=== PATIENT | female | born 1955 | race Caucasian/White ===

== ENCOUNTER → 2019-01-18 | Outpatient (CLI) | payer OTHER ==
[~2019-01-18] MED LIST: FOLGARD TABLET1 EAC1; IBUPROFEN 600600 M1 PO; KOMBIGLYZE XR1 EAC2 PO; LEVAQUIN 500 M500 M2 PO; MULTIVITAMINS PO; PEPCID40 MG PO; PERCOCET 5-3251 EACH PO; SYNTHROID300 MCG PO; VITAMIN D35000 UNI1 PO; VITAMINC500 PO; ZYRTEC10 M2 PO; [UNRECOGNIZED DRUG - OTHER] PO
== END ==
LOC: MRI 09:06
DX: M51.24 Other intervertebral disc displacement, thoracic region (principal); M47.812 Spondylosis without myelopathy or radiculopathy, cervical region; M48.04 Spinal stenosis, thoracic region; M48.02 Spinal stenosis, cervical region; M25.78 Osteophyte, vertebrae; N28.1 Cyst of kidney, acquired

== ENCOUNTER → 2019-02-21 | Outpatient (CLI) | payer OTHER ==
[~2019-02-21] VITALS: Ht 157.5 cm; Wt 62.0 kg
[~2019-02-21] MED LIST changes: +AMITRIPTYLINE H10 M3 PO; +DETROL2 M1 PO; +JANUMET XR 50-1 EAC1 PO; +TRULICITY0.75 MG/0. SUBQ
[2019-02-21 08:15] VITALS: BP 156/86
--- NOTE | 2019-02-21 08:25 | NUR ---
Pain Clinic Assessment: 1. History of Osteoarthritis: Not Applicable History of Rheumatoid Arthritis: Not Applicable 2. Height: 5 ft. 2 in. 157.5 cm. Weight: 136.6 lb. oz. 61.961 kg. Patient's BMI: 25.0 3. Vital Signs: BP: 156/86 Pulse: 101 Resp: 14 Temp: 02 Sat: 97 ECG Mon: 4. Pain Intensity: 3 NOW 6 ACTIVITY 5. Fall Risk: Dizziness: N Needs help standing or walking: N Fallen in the last 3 months: N Fall risk comments: 6. Patient on Blood Thinner: None 7. History of Hypertension: Y 8. Opioid Therapy greater than 6 weeks: N Opiate Contract Signed: 9. Risk Assessment Tool Provided: 10. Functional Assessment Tool: 11. Recreational Drug Use: Never Drug Type: Tobacco Use: Current Every Day Smoker Tobacco Type: Cigarettes Amount or Packs/day: 1/2 How Many Years: 40 Alcohol Use: No Frequency: Quant:
--- NOTE | 2019-03-02 08:26 | HPC ---
[facility] [address] [place] [address] PAIN MANAGEMENT CONSULTATION Name: NANCY MASSEY Room #: REG ATIYA EfrenTonyaRudyTonya#: [id number] Admission: 02/21/19 Attend Phys: Kat Harris MD Discharge: Date of : 57 Report #: [id number] THIS REPORT FOR: //name// CC: Kat Sanchez DATE OF SERVICE: 02/21/2019 CHIEF COMPLAINT: Midline back and thoracic pain. HISTORY: Sharp back pain, which is dull. This started in November. Pain is worse when she is walking, leaning forward or leaning her back against some item. Has tried a heating pad. Describes as constant, burning, shooting, aching, throbbing, and sharp discomfort. Rates it as a 6/10. The patient states that she fell and landed on her hip/back at [employer]. Since that time, she has had some pain and discomfort in the right lower back area below the scapula. Notes that her pain increases with rotation. Pain is problematic with deep breathing. She denies history of shingles. Notes that if she rotates from side to side, the pain is more problematic. She has had some itching discomfort as well. It does wake her on rare occasions. She reported falling on 11/29/2018. Notes that her pain generally gets worse as the day wears on. Does work as a nurse. Has found some benefit with use of heat as well as ibuprofen. She had an MRI of her back and was told that she has a central disk herniation, which causes some stenosis in the T9 and T10 area. ALLERGIES: HEPARIN. CURRENT MEDICATIONS: Trulicity 0.75 mg weekly, Janumet XR , Detrol 2 tablets, Zyrtec 10 mg for allergies, vitamin D3 5000 units, vitamin C 500 mg 2 tablets daily, multivitamin, Pepcid 40 mg, and Synthroid 300 mcg. PAST MEDICAL HISTORY: Hyperthyroidism and diabetes. PAST SURGICAL HISTORY: Hysterectomy in 1985 and lumpectomy in 1995. 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 REVIEW OF SYSTEMS: Generally good health, wears glasses, insomnia, thyroid disease, non-insulin dependent diabetes, and seasonal allergies. LABORATORY DATA: Thoracic spine 2 views dated 12/15/2018 indication of back pain, status post fall. PROCEDURE: AP and lateral views were obtained of the thoracic spine. FINDINGS: No fracture or dislocation. [place] [address] PAIN MANAGEMENT CONSULTATION Name: NANCY MASSEY Room #: REG [facility]#: [id number] Admission: 02/21/19 Attend Phys: Kat Harris MD Discharge: Date of : 57 Report #: [id number] IMPRESSION: 1. Two normal views of thoracic spine. 2. MRI of the thoracic spine dated 01/18/2019, C6-C7 posterior disk osteophyte complex and bilateral facet hypertrophy. Result in severe central canal stenosis with AP diameter of the central canal of 7.4 mm. 3. T5-T6 central posterior disk osteophyte complex and bilateral facet hypertrophy resulting in mild central canal stenosis and no significant neural foraminal narrowing. 4. T9/T10, there is a central posterior disk herniation, which effaces the ventral thecal sac. This herniated disk fragment measures 6 x 7 mm and results in moderate central spinal stenosis and AP diameter of central canal 8.3 mm. No significant neural foraminal narrowing. Spinal cord signal was normal. There is no paraspinous abnormality. PAIN CLINIC ASSESSMENT AND PQRS: 1. History of osteoarthritis. The patient is not being treated for osteoarthritis. She is not being treated for rheumatoid arthritis. 2. Height 5 feet 2 inches, weight 136 pounds, BMI is 25.0. 3. Vital signs: Blood pressure 156/86, pulse 101, respiratory rate 18, room air saturation is 97%. 4. Pain intensity 3 now, increases to 6 with activity. 5. Fall risk. The patient has fallen in November and has had resulted in her current pain. 6. Blood thinner. The patient is not on a blood thinning medication. 7. Hypertension. The patient is being treated for hypertension. 8. Opioid therapy greater than 6 weeks. 9. Risk assessment tool, low for opioid. 10. Functional assessment tool . 11. Recreational drug use. The patient denies. 12. Tobacco: The patient does smoke one-half pack of cigarettes per day, has smoked for last 40 years. The patient is aware of the implications of smoking. She is a nurse. 13. Alcohol. The patient denies frequent use of alcoholic beverages. PHYSICAL EXAMINATION: GENERAL: The patient is a well-developed, well-nourished white female. Appears her stated age. She is alert and oriented x 3. Her affect is appropriate. Speech is fluent. HEENT: Normocephalic, atraumatic. Extraocular eye muscles intact. Sclerae nonicteric. Mucous membranes are moist. The patient is wearing glasses. NECK: Without adenopathy or JVD. HEART: Regular rate. ABDOMEN: Nontender. LUNGS: Clear to auscultation. MUSCULOSKELETAL: The patient has some pain and discomfort in the right chest [address] [address] PAIN MANAGEMENT CONSULTATION Name: NANCY MASSEY Room #: REG [facility]#: [id number] Admission: 02/21/19 Attend Phys: Kat Harris MD Discharge: Date of : 57 Report #: [id number] wall area at approximately T9/T10. This is an area below the rhomboids and the scapula. Certain movements, left and right rotation, left and right bending cause some increased discomfort. The patient has some itching sensation in this area. The patient has noted on rare occasions that the pain awakens her from sleep. There is no evidence of shingles or rash outbreak. IMPRESSION: 1. T9/T10 posterior disk herniation, which effaces the thecal sac with a disk fragment measuring 6 x 7 mm with moderate central canal stenosis and AP diameter of the canal of 8.3 mm. 2. Hyperthyroidism. 3. Diabetes. RECOMMENDATIONS: We discussed treatment options with the patient. At this juncture, the patient is having pain and discomfort. We will try a conservative approach. We reviewed the patient's MRI on the computer, we went over vertebrae by vertebrae the findings. The patient states that she understands what is going on. We will try initially with a conservative approach. The patient will try Elavil 10 mg 1 tablet at bedtime and increase it to 2 tablets at bedtime. Hopefully, this will help with the burning pain and the shooting pain and improve with the patient's ability to sleep. We will then consider a trial of a nerve medication such as Neurontin. Possibility of a thoracic epidural steroid injection remains an option. We would like to thank you for letting us participate in her care. We hope she continues to improve. <ELECTRONICALLY SIGNED> By: Kat Harris MD 03/02/1926 [id number] Kat Harris MD /nt
== END ==
LOC: PAIN 06:50
DX: M51.24 Other intervertebral disc displacement, thoracic region (principal); E03.9 Hypothyroidism, unspecified; E11.9 Type 2 diabetes mellitus without complications; Z88.8 Allergy status to other drugs, medicaments and biological substances; Z79.899 Other long term (current) drug therapy

== ENCOUNTER → 2020-01-22 | Outpatient (CLI) | payer OTHER ==
[2020-01-22 10:00] LABS: ABSOLUTE NEUTROPHILS 3.4 thou/uL (1.4-8.2); BASOPHILS 0.8 % (0.0-2.0); EOSINOPHILS 1.8 % (0.0-3.0); HEMATOCRIT 49.6 % (37.0-47.0); HEMOGLOBIN 17.4 gm/dL (12.0-15.0); LYMPHOCYTES 34.8 % (24.0-44.0); MCH 30.6 pg (26.0-34.0); MCHC 35.1 g/dL (28.0-37.0); MONOCYTES 7.9 % (1.0-8.0); PLATELET COUNT 159 thou/uL (150-400); POLYS 54.7 % (36.0-66.0); RDW 13.3 % (10.5-14.5); WBC 6.3 thou/uL (4.0-11.0)
[2020-01-22 10:14] LABS: ANION GAP 8 mmol/L (7-16); BUN 15 mg/dL (7-18); CHLORIDE 99 mmol/L (98-107); CHOLESTEROL 255 mg/dL (<200); CO2 26 mmol/L (21-32); GLUCOSE 269 mg/dL (74-106); HDL CHOLESTEROL 39 mg/dL (>40); LDL CHOLESTEROL 160 mg/dL (<100); POTASSIUM 4.3 mmol/L (3.5-5.1); SGOT 14 U/L (15-37); SGPT 24 U/L (30-65); SODIUM 133 mmol/L (136-145); TC:HDL 6.5 Ratio (Not establshd); TOTAL BILIRUBIN 0.6 mg/dL (0.2-1.0); TOTAL PROTEIN 7.4 g/dL (6.4-8.2); TRIGLYCERIDE 280 mg/dL (<150); VLDL 56 mg/dL (<40)
[2020-01-23 05:07] LABS: GLYCOHEMOGLOBIN (HGB A1C) 11.7 % (4.8-5.6)
== END ==
LOC: LABMALL 09:32
PROVIDERS: ATTEND Family Medicine
DX: E03.9 Hypothyroidism, unspecified (principal); E11.9 Type 2 diabetes mellitus without complications; I10 Essential (primary) hypertension

== ENCOUNTER → 2021-03-16 | Outpatient (CLI) | payer OTHER ==
[2021-03-16 11:08] LABS: URINE BILIRUBIN NEGATIVE (Negative); URINE BLOOD NEGATIVE (Negative); URINE CLARITY CLEAR; URINE COLOR YELLOW; URINE GLUCOSE-RANDOM* 1+ (Negative); URINE KETONES NEGATIVE (Negative); URINE LEUKOCYTES-REFLEX NEGATIVE (Negative); URINE NITRITE-REFLEX NEGATIVE (Negative); URINE PROTEIN (DIPSTICK) NEGATIVE (Negative); URINE SPECIFIC GRAVITY >= 1.030 (1.005-1.035); URINE UROBILINOGEN 0.2 E.U./dl (0.2-1.0)
[2021-03-16 11:19] LABS: ABSOLUTE NEUTROPHILS 3.4 thou/uL (1.4-8.2); BASOPHILS 0.7 % (0.0-2.0); EOSINOPHILS 1.8 % (0.0-3.0); HEMATOCRIT 47.7 % (37.0-47.0); HEMOGLOBIN 16.4 gm/dL (12.0-15.0); LYMPHOCYTES 39.7 % (24.0-44.0); MCH 30.2 pg (26.0-34.0); MCHC 34.4 g/dL (28.0-37.0); MCV 87.8 fL (80.0-100.0); MONOCYTES 8.2 % (1.0-8.0); PLATELET COUNT 150 thou/uL (150-400); POLYS 49.6 % (36.0-66.0); RBC 5.44 mil/uL (4.20-5.00); WBC 6.9 thou/uL (4.0-11.0)
[2021-03-16 11:30] LABS: ANION GAP 9 mmol/L (7-16); BUN 18 mg/dL (7-18); CALCIUM 9.4 mg/dL (8.5-10.1); CHLORIDE 105 mmol/L (98-107); CHOLESTEROL 243 mg/dL (<200); CO2 28 mmol/L (21-32); CREATININE 0.9 mg/dL (0.6-1.0); GLUCOSE 216 mg/dL (74-106); HDL CHOLESTEROL 42 mg/dL (>40); LDL CHOLESTEROL 160 mg/dL (<100); POTASSIUM 4.6 mmol/L (3.5-5.1); SGOT 13 U/L (15-37); SGPT 25 U/L (30-65); SODIUM 142 mmol/L (136-145); TC:HDL 5.8 Ratio (Not establshd); TOTAL BILIRUBIN 0.5 mg/dL (0.2-1.0); TOTAL PROTEIN 7.5 g/dL (6.4-8.2); TRIGLYCERIDE 206 mg/dL (<150); VLDL 41 mg/dL (<40)
[2021-03-17 01:06] LABS: GLYCOHEMOGLOBIN (HGB A1C) 10.1 % (4.8-5.6)
== END ==
LOC: LAB 10:34
PROVIDERS: ATTEND Family Medicine
DX: Z00.00 Encounter for general adult medical examination without abnormal findings (principal); E11.9 Type 2 diabetes mellitus without complications; E03.9 Hypothyroidism, unspecified; I10 Essential (primary) hypertension